=== PATIENT | male | born 1950 | race Caucasian/White ===

== ENCOUNTER 2016-11-26 20:02 | Emergency (ER) ==
[2016-11-26 20:09] VITALS: BP 171/85; TEMP 98.2; BMI 35.9
--- NOTE | 2016-11-26 20:31 | ED.PDOC ---
General ED Provider: Dr. DARIO DURAN Chief Complaint: Urinary Problem Stated Complaint: f/o frequency of urination, lower abdomen dyscomfort, pain in penis all the time, was recently started on the medications for prostate. Time Seen by Physician: 20:29 Mode of Arrival: Walk-In Information Source: Patient Primary Care Provider: RADHA REDD Nursing and Triage Documentation Reviewed and Agree: Yes GI Complaint Exam - Abdominal Pain Complaint/Exam Onset: Gradual Symptoms Are: Still present Timing: Intermittent Initial Severity: Mild Current Severity: Mild Location of Pain: Suprapubic Character: Reports: Sharp Aggravating: Reports: None (urinating) Alleviating: Reports: None Associated Signs and Symptoms: Reports: Dysuria, Urinary frequency. Denies: Diaphoresis, Fever, Cough, Chest pain, Dizziness, Back pain, Constipation, Blood in stool, Decreased urine output, Decreased appetite, Discharge, Nausea, Vomiting, Diarrhea, Decreased activity AAA Risk Factors: Reports: None Cardiac Risk Factors: Reports: None Testicular Torsion Risk Factors: Reports: None Surgical Obstruction Risk Factors: Reports: None Related Surgical History: Reports: None Abdominal Findings: Absent: Pulsatile mass, Abdominal distention, Unequal femoral pulses Differential Diagnoses: UTI, Prostatitis Review of Systems - Review Of Systems Constitutional: Reports: Malaise, Weakness Eyes: Reports: No symptoms Ears, Nose, Mouth, Throat: Reports: No symptoms Respiratory: Reports: No symptoms Cardiac: Reports: No symptoms GI: Reports: Abdominal pain : Reports: Dysuria, Frequency Musculoskeletal: Reports: No symptoms Skin: Reports: No symptoms Neurological: Reports: No symptoms Endocrine: Reports: No symptoms Hematologic/Lymphatic: Reports: No symptoms All Other Systems: Reviewed and Negative Past Medical History - Past Medical History Previously Healthy: Yes Endocrine: Reports: None Cardiovascular: Reports: None Respiratory: Reports: None Hematological: Reports: None Gastrointestinal: Reports: None Genitourinary: Reports: Other (BPH) Neuro/Psych: Reports: None Musculoskeletal: Reports: None Cancer: Reports: None - Surgical History General Surgical History: Reports: None - Family History Family History: Reports: None - Social History Smoking Status: Never smoker Hx Substance Use: No Alcohol Screening: None - Immunizations Tetanus Shot up to Date: Yes Physical Exam - Physical Exam Appearance: Well-appearing, No pain distress, Well-nourished Eyes: YANA, EOMI, Conjunctiva clear ENT: Ears normal, Nose normal, Oropharynx normal Respiratory: Airway patent, Breath sounds clear, Breath sounds equal, Respirations nonlabored Cardiovascular: RRR, Pulses normal, No rub, No murmur GI/: Soft, Nontender, No masses, Bowel sounds normal, No Organomegaly Musculoskeletal: Normal strength, ROM intact, No edema, No calf tenderness Skin: Warm, Dry, Normal color Neurological: Sensation intact, Motor intact, Reflexes intact, Cranial nerves intact, Alert, Oriented Psychiatric: Affect appropriate, Mood appropriate Interpretation - Radiology Interpretation Radiology Interpretation By: Radiologist Radiology Results: Negative Exam Interpreted: CT Scan Critical Care Note - Critical Care Note Total Time (mins): 0 Course - Course Orders, Labs, Meds: Orders Category Date Time Status BLADDER SCAN ONCE CARE 11/26/16 21:56 Active URINALYSIS C & S IF INDICATED Stat LAB 11/26/16 20:[address] ABDOMEN/PELVIS WO CONTRAST Stat RADS 11/26/16 20:25 Completed Vital Signs: Temp Pulse Resp BP Pulse Ox 11/26/16 20:04 98.2 F 83 18 171/85 H 95 Departure - Departure Time of Disposition: 22:00 Disposition: HOME SELF-CARE Discharge Problem: Prostatitis Qualifiers: Prostatitis type: acute Qualifier Code: (N41.0) Acute prostatitis Instructions: Prostatitis (ED) Condition: Good Pt referred to PMD for follow-up: Yes Additional Instructions: INCREASE HYDRATION PLEASE TAKE URINE SAMPLE TO [facility]ORS OFFICE, Prescriptions: Sulfamethoxazole/Trimethoprim [Bactrim Ds 800/160 mg] 1 tab PO Q12HR #20 tablet Hydrocodone/Acetaminophen [[place] 5-325 Tablet] 1 tab PO TID PRN #12 tablet PRN Reason: PAIN Allergies/Adverse Reactions: Allergies No Known Allergies Allergy (Unverified 11/26/16 20:09) Home Medications: Ambulatory Orders Glyburide/Metformin HCl [Glucovance 5-500 mg Tablet] 0.5 tab PO DAILY 05/23/15 Lisinopril [Zestril] 40 mg PO DAILY 05/23/15 Metformin HCl [Metformin HCl] 1 tab PO BID 05/23/15 Multivit-Min/FA/Lycopene/Lut [Centrum Silver Tablet] 1 each PO DAILY 05/23/15 Pravastatin Sodium [Pravachol] 40 mg PO BEDTIME 05/23/15 Hydrocodone/Acetaminophen [[place] 5-325 Tablet] 1 tab PO TID PRN #12 tablet 11/26 Sulfamethoxazole/Trimethoprim [Bactrim Ds 800/160 mg] 1 tab PO Q12HR #20 tablet 11/26/16 Tamsulosin HCl [Flomax] 1 mg PO DAILY 11/26/16 Disposition Discussed With: Patient, Family
--- NOTE | 2016-11-26 20:53 | CT ---
Exam: CT of the abdomen and pelvis without contrast History: Dysuria and abdominal pain Technique: [address] of the abdomen and pelvis without intravascular contrast FINDINGS: The lung bases are clear. No significant liver abnormality. The adrenals, pancreas and sp ashu are unremarkable. The stomach and hiatus are unremarkable Cholelithiasis without CT evidence of cholecystitis Kidneys and proximal collecting system normal. The appendix is normal. Bowel loops demonstrate normal caliber. No inflamatory change seen in the mesentery or retroperitoneum. Atherosc lerotic calcification of the aorta without aneurysm. Pelvic genitourinary structures appear normal. Pelvic bowel loops are unremarkable. No inflammatory change in the pelvic fat. No acute abnormality of the abdominal or pelvic skeleton. Impression: 1. No inflammatory process, bowel or urinary obstruction is seen. 2. Cholelithiasis without CT evidence of cholecystitis 3. No acute findings of the abdomen or pelvis
[2016-11-26] MEDS ORDERED: ROCEPHIN IM STA (21:58)
[2016-11-26] MEDS ORDERED: TORADOL IM STA (21:58)
[2016-11-26] MEDS ORDERED: LIDOCAINE 1 % AMP 5 ML (SUTURES) IM STA (21:58)
== END 2016-11-26 22:25 | disposition home or self-care (01) ==
LOC: ED 20:02
DX: N41.0 Acute prostatitis (principal); Z79.899 Other long term (current) drug therapy
CPT/HCPCS: 51798; 96375; 99283

== ENCOUNTER 2016-11-29 07:18 | Emergency (ER) ==
[2016-11-29 07:25] VITALS: BP 173/88; TEMP 98.1; BMI 36.7
[2016-11-29] MEDS ORDERED: MORPHINE 4 MG/ML SYRINGE IM STA (07:53)
[2016-11-29] MEDS ORDERED: ZOFRAN 4 MG/2 ML IM STA (07:53)
[2016-11-29] MEDS ORDERED: URO-JET MUCOUSMEMB STA ×2 (07:59→08:00)
[2016-11-29 08:20] LABS: BASOPHILS % (AUTO) 0.3 % (0.0-3.0); EOSINOPHILS # (AUTO) 0.1 K/ul (0.0-0.7); EOSINOPHILS % (AUTO) 1.3 % (0.0-7.0); HEMATOCRIT 40.1 % (42.0-52.0); HEMOGLOBIN 13.4 g/dl (14.0-18.0); IMMATURE GRANULOCYTE % (AUTO) 0.4 % (0.0-5.0); LYMPHOCYTES # (AUTO) 1.7 K/uL (0.60-3.4); LYMPHOCYTES % (AUTO) 17.2 (10.0-50.0); MEAN CORPUSCULAR HEMOGLOBIN 27.8 pg (27.0-31.0); MEAN CORPUSCULAR HGB CONC 33.4 (31.8-35.4); MEAN CORPUSCULAR VOLUME 83.2 fl (80.0-94.0); MONOCYTES # (AUTO) 0.8 K/uL (0.4-2.0); NEUTROPHILS # (AUTO) 7.4 K/ul (2.0-6.9); NEUTROPHILS % (AUTO) 72.8; PLATELET COUNT 193 10^3/uL (140-440); RED BLOOD COUNT 4.82 10^6/ul (4.70-6.10); WHITE BLOOD COUNT 10.14 K/ul (4.2-10.2)
[2016-11-29 08:23] LABS: BILIRUBIN,URINE Negative (NEGATIVE); KETONES,URINE Negative (NEGATIVE); LEUKOCYTE ESTERASE ,URINE Trace (NEGATIVE); NITRITE,URINE Negative (NEGATIVE); PH,URINE 5.5 (5-9); PROTEIN,URINE Negative (NEGATIVE); URINE, BLOOD Negative (NEGATIVE)
[2016-11-29 08:42] LABS: ADD URINE MICROSCOPIC YES
[2016-11-29 08:44] LABS: ALBUMIN 4.4 g/dL (3.4-5.0); ALBUMIN/GLOBULIN RATIO 1.26; ANION GAP 16.4; BILIRUBIN,TOTAL 1.03 mg/dL (0.00-1.20); BUN/CREATININE RATIO 13.6; CALCIUM 9.6 mg/dL (8.2-10.2); CREATININE 1.47 mg/dL (0.60-1.10); POTASSIUM 4.4 mmol/L (3.5-5.1); TOTAL PROTEIN 7.9 g/dL (5.8-8.1)
--- NOTE | 2016-11-29 08:54 | CT ---
EXAM: CT Abdomen without contrast. CT Pelvis without contrast. HISTORY: Prostate infection. Lower abdominal pain. Dysuria. COMPARISON: 11/26/2016. TECHNIQUE: Multiple axial images of the abdomen and pelvis were obtained without intravenous contra st. Images were reformatted in the coronal plane. FINDINGS: Please note that evaluation of the abdominal and pelvic structures is limited due to lack of intravenous contrast. Subsegmental atelectasis and calcified granulomatous changes noted in the lung bases. Degenerative changes are present in the spine with old anterior superior L4 endplate compression deformity. Calcified stones seen in the gallbladder. The liver, pancreas, spleen, adrenal glands, and kidneys are without acute abnormality. Lobular cortical margins of the anterior-superior left kidney noted on axial image 42 which are not well characterized. No calcified renal stones or hydronephrosis angela ntified. Urinary bladder is unremarkable. No localized prostate abnormality identified. The bowel is normal in course and caliber without evidence for obstruction or inflammatory process. The appendix is normal. No free fluid or free air identified. Atherosclerotic calcifications are present. IMPRESSION: 1. No acute abnormality within the abdomen or pelvis. 2. Cholelithiasis. 3. Lobular contour of the anterior superior left renal cortex. Renal mass is not excluded. Correl ation with renal ultrasound or multiphase abdominal MRI recommended for further evaluation.
--- NOTE | 2016-11-29 09:15 | ED.PDOC ---
General ED Provider: Dr. ANTHONY STRATTON Chief Complaint: Urinary Problem Stated Complaint: urinary retention Time Seen by Physician: 07:20 (2 days) Mode of Arrival: Walk-In Information Source: Patient Exam Limitations: No limitations Primary Care Provider: RADHA REDD Nursing and Triage Documentation Reviewed and Agree: Yes (seen with edi at all times and was seen at [facility] ED previously days ago) Complaint Exam - Complaint/Exam Patient Complains of: Reports: Dysuria Onset/Duration: 1 day Symptoms Are: Still present Timing: Constant Initial Severity: Moderate Current Severity: Moderate Location of Pain: Reports: Suprapubic Character: Reports: Constant pressure Aggravating: Reports: Voiding Alleviating: Reports: None Associated Signs and Symptoms: Denies: Diaphoresis, Back pain, Fever, Hematuria , Dysuria, Constipation, Blood in stool, Rectal pain, Appetite change, Nausea, Vomiting, Penile swelling, Penile discharge, Decreased urine output, Increased urine frequency, Increased thirst, Decreased activity, Lethargy, Scrotal pain, Scrotal swelling, Abdominal Pain Testicular Torsion Risk Factors: Reports: None Surgical Obstruction Risk Factors: Reports: None Related Surgical History: Reports: None Abdominal Findings: Present: None Differential Diagnoses: Prostatitis (urinary retention), Other Review of Systems - Review Of Systems Constitutional: Reports: No symptoms Eyes: Reports: No symptoms Ears, Nose, Mouth, Throat: Reports: No symptoms Respiratory: Reports: No symptoms Cardiac: Reports: No symptoms GI: Reports: No symptoms : Reports: Urgency (unable to void) Musculoskeletal: Reports: No symptoms Skin: Reports: No symptoms Neurological: Reports: No symptoms Endocrine: Reports: No symptoms Hematologic/Lymphatic: Reports: No symptoms All Other Systems: Reviewed and Negative Past Medical History - Past Medical History Previously Healthy: Yes Endocrine: Reports: None Cardiovascular: Reports: None Respiratory: Reports: None Hematological: Reports: None Gastrointestinal: Reports: None Genitourinary: Reports: Other (BPH) Neuro/Psych: Reports: None Musculoskeletal: Reports: None Cancer: Reports: None - Surgical History General Surgical History: Reports: None - Family History Family History: Reports: None - Social History Smoking Status: Never smoker Hx Substance Use: No Alcohol Screening: None Physical Exam - Physical Exam Appearance: Well-appearing, No pain distress, Well-nourished Eyes: YANA, EOMI, Conjunctiva clear ENT: Ears normal, Nose normal, Oropharynx normal Respiratory: Airway patent, Breath sounds clear, Breath sounds equal, Respirations nonlabored Cardiovascular: RRR, Pulses normal, No rub, No murmur GI/: Soft, Nontender, No masses, Bowel sounds normal, No Organomegaly Musculoskeletal: Normal strength, ROM intact, No edema, No calf tenderness Skin: Warm, Dry, Normal color Neurological: Sensation intact, Motor intact, Reflexes intact, Cranial nerves intact, Alert, Oriented Psychiatric: Affect appropriate, Mood appropriate Interpretation - Radiology Interpretation Radiology Results: Positive (need for RENAL MRI TO RULE OUT MASS DISCUUSED WITH EDI AT BEDSIDE) Critical Care Note - Critical Care Note Total Time (mins): 0 Course - Course Hematology/Chemistry: 11/29/16 08:13 11/29/16 08:13 Orders, Labs, Meds: Lab Review 11/29/16 11/29/16 08:05 08:13 WBC 10.14 RBC 4.82 Hgb 13.4 L Hct 40.1 L MCV 83.2 MCH 27.8 MCHC 33.4 RDW Coeff of Amber 14.9 H Plt Count 193 Immature Gran % (Auto) 0.4 Neut % (Auto) 72.8 Lymph % (Auto) 17.2 Ray % (Auto) 8.0 Eos % (Auto) 1.3 Baso % (Auto) 0.3 Immature Gran # (Auto) 0.0 Neut # 7.4 H Lymph # 1.7 Ray # 0.8 Eos # 0.1 Baso # 0.0 Sodium 139 Potassium 4.4 Chloride 102 Carbon Dioxide 25 Anion Gap 16.4 BUN 20 H Creatinine 1.47 H Estimated GFR (MDRD) 48.00 BUN/Creatinine Ratio 13.60 Glucose 100 Calcium 9.6 Total Bilirubin 1.03 AST 32 ALT 26 Alkaline Phosphatase 86 Total Protein 7.9 Albumin 4.4 Globulin 3.5 Albumin/Globulin Ratio 1.26 Urine Color Yellow Urine Clarity Clear Urine pH 5.5 Ur Specific [place] <=1.005 Urine Protein Negative Urine Glucose (UA) Negative Urine Ketones Negative Urine Blood Negative Urine Nitrite Negative Urine Bilirubin Negative Urine Urobilinogen 0.2 Ur Leukocyte Esterase Trace Urine Microscopic WBC 0-2 Ur Squamous Epith Cells Not present Orders Category Date Time Status Bladder [ED BLADDER SCAN] .ONCE EMERGENCY 11/29/16 07:50 Active Parekh [ED CATHETER INSERTION AND CARE] .ONCE EMERGENCY 11/29/16 07:59 Ordered Parekh [ED CATHETER INSERTION AND CARE] .ONCE EMERGENCY 11/29/16 08:00 Active CBC W/ AUTO DIFF Stat LAB 11/29/16 07:49 Ordered COMPREHENSIVE METABOLIC PANEL Stat LAB 11/29/16 07:49 Ordered URINALYSIS C & S IF INDICATED Stat LAB 11/29/16 07:50 Uncollected Lidocaine HCl [Uro-Jet] MEDS 11/29/16 07:59 Stat 10 ml [email or web address] ONCE STA Lidocaine HCl [Uro-Jet] MEDS 11/29/16 08:00 Discontinued 10 ml [email or web address] ONCE STA Morphine Sulfate [Morphine 4 mg/ml Syringe] MEDS 11/29/16 07:53 Discontinued 4 mg IM ONCE STA Ondansetron HCl/Pf [Zofran 4 mg/2 ml] MEDS 11/29/16 07:53 Discontinued 4 mg IM ONCE STA CT ABDOMEN/PELVIS WO CONTRAST Stat RADS 11/29/16 07:50 Ordered Medications Discontinued Medications Generic Name Dose Route Start Last Admin Trade Name Freq PRN Reason Stop Dose Admin Lidocaine HCl 10 ml 11/29/16 07:59 Uro-Jet [email or web address] 11/29/16 08:00 ONCE STA Lidocaine HCl 10 ml 11/29/16 08:00 Uro-Jet [email or web address] 11/29/16 08:01 ONCE STA Morphine Sulfate 4 mg 11/29/16 07:53 Morphine 4 Mg/Ml Syringe IM 11/29/16 07:54 ONCE STA Ondansetron HCl 4 mg 11/29/16 07:53 Zofran 4 Mg/2 Ml IM 11/29/16 07:54 ONCE STA Vital Signs: Temp Pulse Resp BP Pulse Ox 11/29/16 07:18 98.1 F 75 20 173/88 H 95 Departure - Departure Time of Disposition: 09:16 Disposition: HOME SELF-CARE Discharge Problem: Urinary symptoms, Urinary retention Instructions: Dysuria (ED) Condition: Good Pt referred to PMD for follow-up: Yes Additional Instructions: Please call your Family Physician as soon as possible to schedule a follow-up appointment. YOU NEED NEED AN MRI WE DISCUSSED TO RULE OUT CANCER PLEASE DON NOT DELAY FOLLOW UP Allergies/Adverse Reactions: Allergies No Known Allergies Allergy (Verified 11/29/16 07:26) Home Medications: Ambulatory Orders Glyburide/Metformin HCl [Glucovance 5-500 mg Tablet] 0.5 tab PO DAILY 05/23/15 Lisinopril [Zestril] 40 mg PO DAILY 05/23/15 Metformin HCl [Metformin HCl] 1 tab PO BID 05/23/15 Multivit-Min/FA/Lycopene/Lut [Centrum Silver Tablet] 1 each PO DAILY 05/23/15 Pravastatin Sodium [Pravachol] 40 mg PO BEDTIME 05/23/15 Hydrocodone/Acetaminophen [[place] 5-325 Tablet] 1 tab PO TID PRN #12 tablet 11/26 Sulfamethoxazole/Trimethoprim [Bactrim Ds 800/160 mg] 1 tab PO Q12HR #20 tablet 11/26/16 Tamsulosin HCl [Flomax] 1 mg PO DAILY 11/26/16
== END 2016-11-29 10:00 | disposition home or self-care (01) ==
LOC: ED 07:18
DX: R33.9 Retention of urine, unspecified (principal); R30.0 Dysuria; Z79.899 Other long term (current) drug therapy
CPT/HCPCS: 36415; 80053; 81001; 85025; 99283

== ENCOUNTER 2016-12-05 16:54 | Outpatient (CLI) ==
[2016-12-05 17:14] VITALS: BP 175/82; TEMP 97.9
== END 2016-12-05 16:55 | disposition home or self-care (01) ==
LOC: OUTPT 16:54
PROVIDERS: ATTEND Family Medicine
DX: R33.9 Retention of urine, unspecified (principal); Z46.6 Encounter for fitting and adjustment of urinary device
CPT/HCPCS: 99211

== ENCOUNTER 2016-12-05 17:56 | Emergency (ER) ==
[2016-12-05 18:06] VITALS: BP 175/82; TEMP 97.9; BMI 43.0
--- NOTE | 2016-12-05 18:08 | ED.PDOC ---
General ED Provider: Dr. ROSA MARIA ERICKSON JR Chief Complaint: Urinary Problem Stated Complaint: unable to void, nursin manipulates catheter, unable to empty balloon, unable to flush catheter. bulb inflated with pain, cather advanced inwardly, baloon inflated- ballon empties and catheter removed wihtout difficulty- slight BRB, patietn voids 500cc feels better. Time Seen by Physician: 18:07 Mode of Arrival: Walk-In Information Source: Patient Exam Limitations: No limitations Primary Care Provider: RADHA REDD Nursing and Triage Documentation Reviewed and Agree: No Review of Systems - Review Of Systems Constitutional: Reports: Malaise Eyes: Reports: No symptoms Ears, Nose, Mouth, Throat: Reports: No symptoms Respiratory: Reports: No symptoms Cardiac: Reports: No symptoms GI: Reports: No symptoms : Reports: Pain, Other (unable to void no drainage from catheter) Musculoskeletal: Reports: No symptoms Skin: Reports: No symptoms Neurological: Reports: No symptoms Endocrine: Reports: No symptoms Hematologic/Lymphatic: Reports: No symptoms All Other Systems: Other Past Medical History - Past Medical History Previously Healthy: Yes Endocrine: Reports: None Cardiovascular: Reports: None Respiratory: Reports: None Hematological: Reports: None Gastrointestinal: Reports: None Genitourinary: Reports: Other (BPH) Neuro/Psych: Reports: None Musculoskeletal: Reports: None Cancer: Reports: None - Surgical History General Surgical History: Reports: None - Family History Family History: Reports: None - Social History Smoking Status: Never smoker Hx Substance Use: No Alcohol Screening: None Physical Exam - Physical Exam Appearance: Well-appearing, Obese Pain Distress: Moderate GI/: Tender (see note) Critical Care Note - Critical Care Note Total Time (mins): 0 Course - Course Vital Signs: Temp Pulse Resp BP Pulse Ox 12/05/16 17:57 97.9 F 95 H 16 175/82 H 93 L Departure - Departure Time of Disposition: 18:07 Disposition: HOME SELF-CARE Discharge Problem: Urinary retention Instructions: Urinary Retention in Men (ED) Condition: Good Pt referred to PMD for follow-up: Yes Additional Instructions: stop oral intake of liquids 4 hours before bedtime void hourly while awake and attempt to void every 3-4 hours through the nite for two days then increase to every two hours during the day and every 4-8 hours thought hte night then every three hours for two days or as recommended by urologist follow up with urology Allergies/Adverse Reactions: Allergies No Known Allergies Allergy (Verified 11/29/16 07:26) Home Medications: Ambulatory Orders Glyburide/Metformin HCl [Glucovance 5-500 mg Tablet] 0.5 tab PO DAILY 05/23/15 Lisinopril [Zestril] 40 mg PO DAILY 05/23/15 Metformin HCl [Metformin HCl] 1 tab PO BID 05/23/15 Multivit-Min/FA/Lycopene/Lut [Centrum Silver Tablet] 1 each PO DAILY 05/23/15 Pravastatin Sodium [Pravachol] 40 mg PO BEDTIME 05/23/15 Hydrocodone/Acetaminophen [[place] 5-325 Tablet] 1 tab PO TID PRN #12 tablet 11/26 Sulfamethoxazole/Trimethoprim [Bactrim Ds 800/160 mg] 1 tab PO Q12HR #20 tablet 11/26/16 Tamsulosin HCl [Flomax] 1 mg PO DAILY 11/26/16
== END 2016-12-05 18:28 | disposition home or self-care (01) ==
LOC: ED 17:56
DX: T83.9XXA Unspecified complication of genitourinary prosthetic device, implant and graft, initial encounter (principal); R33.9 Retention of urine, unspecified; Z46.6 Encounter for fitting and adjustment of urinary device
CPT/HCPCS: 99211; 99282